=== PATIENT | female | born 1995 | race Caucasian/White ===

== ENCOUNTER → 2020-04-28 | Outpatient (CLI) | payer BC ==
--- NOTE | 2020-04-28 11:58 | Diagnostic Imaging Report ---
EXAM: Renal Ultrasound INDICATION: ^[id number] ^[id number] ^LOW BACK PAIN / PROTEINURIA COMPARISON: None TECHNIQUE: Transverse and longitudinal images of the kidneys and bladder were obtained. FINDINGS: Right Kidney: Length: 10.4 cm Appearance: Normal echogenicity. Collecting system: Moderate hydronephrosis Stones: None Cyst/Mass: None Left Kidney: Length: 10.0 cm Appearance: Normal echogenicity. Collecting system: Mild hydronephrosis Stones: None Cyst/Mass: None Bladder: No mass or calculi. Bilateral ureteral jets visualized. Prevoid volume estimate of 333 cc. IMPRESSION: Moderate right and mild left hydronephrosis. Right hydronephrosis did not resolve after voiding. Left hydronephrosis mildly improved after voiding. Signed by: Karthik Westbrook MD on 04/28/2020 11:55 AM
== END ==
LOC: US 10:43
PROVIDERS: ATTEND Nurse Practitioner Family
DX: M54.5 Low back pain (principal); N30.01 Acute cystitis with hematuria; R10.9 Unspecified abdominal pain; R80.9 Proteinuria, unspecified
CPT/HCPCS: 76770

== ENCOUNTER → 2020-05-01 | Outpatient (CLI) | payer BC ==
[~2020-05-01] MED LIST: FUROSEMIDE INJ 10 MG/ML 4 ML VIAL ONE
--- NOTE | 2020-05-01 17:20 | Diagnostic Imaging Report ---
EXAM: CT Abdomen and Pelvis WITHOUT contrast INDICATION : evaluation of bilateral hydronephrosis. COMPARISON: None. TECHNIQUE: Abdomen and pelvis were scanned utilizing a multidetector helical scanner from the lung base to the pubic symphysis without administration of IV contrast. Absence of intravenous contrast decreases sensitivity for detection of focal lesions and vascular pathology. Coronal and sagittal reformations were obtained. Routine protocol was performed. IV CONTRAST: None ORAL CONTRAST: None COMPLICATIONS: None RADIATION DOSE: Total DLP: 175.17 mGy*cm Estimated effective dose: (DLP x 0.015 x size factor) mSv CTDIvol has been reviewed. It is below the limits set by the Radiation Protocol Committee (RPC). Dose modulation, iterative reconstruction, and/or weight based adjustment of the mA/kV was utilized to reduce the radiation dose to as low as reasonably achievable. FINDINGS: LINES and TUBES: None. LOWER THORAX: Unremarkable HEPATOBILIARY: No focal hepatic lesions. No biliary ductal dilation. GALLBLADDER: No radio-opaque stones or sludge. No wall thickening. SPLEEN: No splenomegaly. PANCREAS: No focal masses or ductal dilatation. ADRENALS: No adrenal nodules KIDNEYS/URETERS: There is moderate right and mild left hydroureteronephrosis. No obstructive renal or ureteral stones. No cystic or solid mass lesions. GI TRACT: No abnormal distention, wall thickening, or evidence of bowel obstruction. Appendix is normal. PELVIC ORGANS/BLADDER: There is an intrauterine contraceptive device in place. The pelvic structures are otherwise normal. The urinary bladder is distended with normal wall contour. LYMPH NODES: No lymphadenopathy. VESSELS: Unremarkable. PERITONEUM / RETROPERITONEUM: No free air or fluid. BONES: Unremarkable. SOFT TISSUES: Unremarkable. IMPRESSION: 1. Moderate right and mild left hydroureteronephrosis of indeterminate cause. No obstructive renal or ureteral stones. 2. Distended urinary bladder with normal wall contour. Consider neurogenic bladder if patient is unable to void with ease. Signed by: Fran Chirinos MD on 05/01/2020 5:17 PM
--- NOTE | 2020-05-01 17:47 | Diagnostic Imaging Report ---
Renal Scan with Lasix Washout Clinical information: Unspecified hydronephrosis. 24 F with right flank pain. Technique: Following intravenous administration of 10 mCi of Tc-99m MAG3, dynamic images of the kidneys in the posterior projection were obtained through 40 minutes. Lasix 40 mg was administered intravenously at 10 minutes post injection of the tracer. Report: Left kidney: Perfusion of the left kidney is prompt. The kidney has a normal reniform shape. Extraction of tracer from the blood pool is normal. Clearance of tracer from the renal parenchyma is prompt. The pelvicalyceal system is not dilated. Physiologic pooling of tracer is seen within the pelvicalyceal system. Drainage of tracer from the pelvicalyceal system is prompt and adequate prior to administration of Lasix. No significant stasis of tracer is seen within the left ureter. Right kidney: Perfusion to the right kidney is prompt. The right kidney has a normal reniform shape. Extraction of tracer by the renal parenchyma is normal. Clearance of tracer from the renal parenchyma is prompt. The pelvicalyceal system is not dilated; the renal pelvis is slightly prominent. Physiologic pooling of tracer is seen within the pelvicalyceal system. Drainage of tracer from the pelvicalyceal system is prompt and adequate prior to administration of Lasix. No significant stasis of tracer is seen within the right ureter. Differential renal function: The left kidney contributes 50% of total renal function and the right kidney contributes 50% (normal 43-57%). Impression: 1. The function of the left kidney is generally normal. No hydronephrosis is present. No physiologically significant obstruction of the renal collecting system is present. 2. The function of the right kidney is generally normal. No hydronephrosis is present. No physiologically significant obstruction of the renal collecting system is present. 3. The differential renal function is preserved. Signed by: Dr. Emmy Negron M.D. on 05/01/2020 5:43 PM
== END ==
LOC: NM 13:19
PROVIDERS: ATTEND Urology
DX: N13.30 Unspecified hydronephrosis (principal)
CPT/HCPCS: 74176; 78708; 81025; A9562; J1940

== ENCOUNTER → 2020-05-13 | Day surgery (SDC) | payer BC, OTHER ==
[~2020-05-13] MED LIST changes: +B&O 60MG R/S 60 MG SUPP PR ONE; +CEFTRIAXONE SOD 1 GM/NS 50 ML 50 ML IV ONE; +DEXAMETHASONE SOD PHOS INJ 4 MG/ML VIAL ONE; -FUROSEMIDE INJ 10 MG/ML 4 ML VIAL ONE; +IOPAMIDOL 300MG/ML 50ML INFUS..BTL IV ONE; +IOTHALAMATE MEGLUMINE 17.20% 250 ML BTL ONE; +LIDOCAINE HCL 2% LOCAL INJ 5 ML SDV VIAL INJ ONE; +MACROBID 100 M100 MG PO; +MIDAZOLAM HCL 2 MG/2 ML VIAL ONE; +ONDANSETRON HCL INJ 2MG/ML 2ML 2 MG/ML VIAL ONE; +PROPOFOL IV EMULSION 10 MG/ML 20 ML VIAL ONE; +SEVOFLURANE INHAL SOLN 250 ML PEN BTL ONE
[2020-05-13 09:46] VITALS: BP 113/81
--- NOTE | 2020-05-13 18:51 | Operative Report ---
DATE OF PROCEDURE: 05/13/2020 SURGEON: Richie Nickerson MD PREOPERATIVE DIAGNOSES: 1. Recurrent urinary tract infection. 2. Right greater than left hydronephrosis. POSTOPERATIVE DIAGNOSES: 1. Recurrent urinary tract infection. 2. Right greater than left hydronephrosis. 3. Significant urethral stenosis. 4. Very minimal, but is not clinically significant. OPERATIONS PERFORMED: 1. Cystourethroscopy with calibration and dilation of urethral stricture (separate procedure performed for the urethral stenosis). 2. Cystourethroscopy with bilateral ureteral catheterization and retrograde ureteropyelography (separate procedure performed for the urinary tract infections). 3. Interpretation of retrograde ureteropyelography, no radiologist present. 4. Interpretation of cystography, no radiologist present. 5. Supervision of fluoroscopy, no radiologist present. 6. Pelvic examination under anesthesia. ANESTHESIA: General. COMPLICATIONS: None. CLINICAL SUMMARY: Rosalva Mosley is a 24-year-old woman, who has had urinary tract infections ever since she has been a teenager. The patient was evaluated and she was found to have right greater than left hydronephrosis present on both ultrasound and CT. Nuclear Medicine renal scanning, however, revealed equally functioning kidneys with no hydronephrosis and no functional obstruction. The patient is brought to the operating room to complete her urological workup. She is aware of the risks of bleeding, infection, injury to adjacent structures, need for additional procedures and elected to proceed. The patient has been taking Macrobid for about a week and last night, broke out in hives. It is possible that the patient is allergic to Macrobid and it is also possible that the patient is allergic to some food that she had when she went up to dinner recently. OPERATIVE PROCEDURE IN DETAIL: Informed consent was verified. Rosalva Mosley was properly identified, taken to the operating room, and placed on the cystoscopy table in supine position. Anesthesia was uneventfully begun. The patient was then carefully and gently repositioned in the dorsal lithotomy position with all pressure points well padded. Her genitalia were prepared and draped in the usual sterile fashion. The 21-Iranian cystourethroscope sheath with obturator in place could not be placed into the patient's urethral meatus. We calibrated the patient's urethral meatus and the remainder of her urethra at approximately 14-Iranian in size and progressively dilated her to 28-Iranian in size. We then easily able to place the cystoscope sheath into the patient's bladder. We drained and send the urine that was catheterized for culture and sensitivity. Panendoscopy in her bladder revealed grade 1 trabeculation, but no tumors, no stones, no diverticula, normally positioned and configured ureteral orifices were identified. Contrast was injected via the cystoscope sheath in performing a cystogram. Interpretation of cystography: The bladder wall was smooth. There was no diverticula present. There was no vesicoureteric reflux to account for the hydronephrosis. An 8-Iranian catheter was used to cannulate each ureter and retrograde ureteropyelogram was performed. Interpretation of retrograde ureteropyelography: Contrast was instilled in retrograde fashion bilaterally. The both ureters were delicate. There was some degree of tortuosity, but there were no suspicious filling defects and there were no tumors. There was fullness of the right collecting system more than the left collecting system, but all the fullness appeared to be limited to the patient's renal pelvis. Nevertheless, unobstructed drainage was observed bilaterally fluoroscopically in a very prompt fashion and the calices were delicate and sharp throughout. Withdrawn, pelvic examination revealed no cystocele, a very minimal rectocele that is not clinically significant. No abnormal palpable pelvic masses could be appreciated. There were no obvious mucosal lesions. The patient was then uneventfully reversed from anesthesia and taken to recovery room in stable condition. PLAN: I defer the followup of the patient's IUD noted on x-ray test to her mixer slagman. We will plan to have the patient discontinue her Macrobid and we will start the patient on trimethoprim for antibiotic suppression. In addition, she was given two days of Diflucan as well as narcotic pain medicine should she have any pain. She was instructed to utilize Azo [id number] for any dysuria. We will plan to follow the patient up in approximately one month. MD OMAIRA Jo/XAVIER /[id number]
== END | disposition home or self-care (01) ==
LOC: OR 06:02
PROVIDERS: ATTEND Urology
DX: N13.30 Unspecified hydronephrosis (principal); N23 Unspecified renal colic; N39.0 Urinary tract infection, site not specified; N35.92 Unspecified urethral stricture, female; N32.89 Other specified disorders of bladder; Z97.5 Presence of (intrauterine) contraceptive device; Z01.812 Encounter for preprocedural laboratory examination; Z11.59 Encounter for screening for other viral diseases
CPT/HCPCS: 52281; 74430; 81025; 87086; J0696; J1100; J2001; J2250; J2405; J2704; Q9958; Q9967; U0002

== ENCOUNTER → 2020-10-09 | Outpatient (CLI) | payer OTHER ==
[~2020-10-09] MED LIST changes: -B&O 60MG R/S 60 MG SUPP PR ONE; -CEFTRIAXONE SOD 1 GM/NS 50 ML 50 ML IV ONE; -DEXAMETHASONE SOD PHOS INJ 4 MG/ML VIAL ONE; -IOPAMIDOL 300MG/ML 50ML INFUS..BTL IV ONE; -IOTHALAMATE MEGLUMINE 17.20% 250 ML BTL ONE; -LIDOCAINE HCL 2% LOCAL INJ 5 ML SDV VIAL INJ ONE; -MIDAZOLAM HCL 2 MG/2 ML VIAL ONE; -ONDANSETRON HCL INJ 2MG/ML 2ML 2 MG/ML VIAL ONE; -PROPOFOL IV EMULSION 10 MG/ML 20 ML VIAL ONE; -SEVOFLURANE INHAL SOLN 250 ML PEN BTL ONE
== END ==
LOC: US 14:58
PROVIDERS: ATTEND Student in an Organized Health Care Education/Training Program
DX: T83.32XA Displacement of intrauterine contraceptive device, initial encounter (principal)
CPT/HCPCS: 76830